=== PATIENT | male | born 1990 | race Caucasian/White ===

== ENCOUNTER 2020-08-13 08:36 | Emergency (ER) | payer SELFPAY ==
[2020-08-13 09:22] LABS: Absolute Lymphocytes (CBC) 1.1 K/uL (0.7-4.9); Basophils % 0.2 % (0-1.3); Hematocrit 51.1 % (39.6-49.0); MPV 9.6 fL (7.6-11.3); RBC Red Blood Cell Count 5.82 M/uL (4.33-5.43)
[2020-08-13] MEDS ORDERED: MAGNES/ALUMIN/SIMET 30ML UCUP ONE (09:25)
[2020-08-13] MEDS ORDERED: ONDANSETRON 4 MG/2 ML VIAL ONE (09:25)
[2020-08-13] MEDS ORDERED: LIDOCAINE VISCOUS 2% SOLN 15 ML UDC ONE (09:26)
[2020-08-13] MEDS ORDERED: PANTOPRAZOLE 40 MG INJ ONE (09:26)
[2020-08-13] MEDS ORDERED: NA CHLORIDE 0.9% 1,000 ML ONE ×2 (09:26→10:26)
[2020-08-13 09:32] LABS: Albumin 4.7 g/dL (3.4-5.0); Bilirubin Direct 0.2 mg/dL (0-0.2); Bilirubin Total 1.4 mg/dL (0.2-1.0); Potassium 3.3 mmol/L (3.5-5.1); Protein, Total 8.2 g/dL (6.4-8.2)
--- NOTE | 2020-08-13 09:52 | RAD REPORT ---
EXAM DESCRIPTION: CT - Abdomen Pelvis W Contrast - 08/13/2020 9:34 am CLINICAL HISTORY: hematemesis COMPARISON: No comparisons TECHNIQUE: Biphasic, helical CT imaging of the abdomen and pelvis was performed following 100 ml non -ionic IV contrast. No oral contrast given. All CT scans are performed using dose optimization technique as appropriate and may include automated exposure control or mA/KV adjustment according to patient size. FINDINGS: No suspicious findings in the lung bases. The liver, spleen, and pancreas show no suspicious findings. Gallbladder and biliary tree are also wi thout suspicious finding. Symmetric renal function is seen with no hydronephrosis or suspicious renal mass. No pyelonephritis o r acute parenchymal process. No bladder abnormalities. No adrenal abnormalities. Stomach is decompressed with very little content within the lumen. This accentuates wall thickness. N o gross or clearly abnormal wall thickening, mass or edema seen. Gastritis or mucosal level abnormali ties can be occult on CT imaging. Duodenum and remainder of the small bowel shows no acute finding. C olon is mostly decompressed with no acute finding. Tubular structure abutting the right psoas muscle is believed to be normal diameter appendix. No direct or indirect findings for acute appendicitis. No free air, free fluid or inflammatory stranding. No hernia, mass or bulky lymphadenopathy. No suspicious bony findings. IMPRESSION: Contrast enhanced CT abdomen and pelvis showing no acute or emergent finding.
[2020-08-13 10:19] LABS: Blood Morphology Comment NOT SEEN (NOT SEEN); Platelet Estimate ADEQ; White Blood Cell Scan OK (OK)
--- NOTE | 2020-08-13 11:21 | ER ---
Nurse's Notes [facility] Name: Armando Wall Age: 30 yrs Sex: Male : 1990 Arrival Date: 08/13/2020 Time: 08:40 Bed 20 Private MD: Diagnosis: Hematemesis;Dehydration Presentation: 08/13 08:41 Chief complaint: Patient states: N/V with blood in it since 6 am Saturday. [place] hot at ll1 home, but no thermometer. Coronavirus screen: Client denies travel out of the [place] in the last 14 days. At this time, the client does not indicate any symptoms associated with coronavirus-19. Ebola Screen: Patient denies travel to an Ebola-affected area in the 21 days before illness onset. Initial Sepsis Screen: Does the patient meet any 2 criteria? No. Patient's initial sepsis screen is negative. Does the patient have a suspected source of infection? Yes: Acute abdominal pain. Risk Assessment: Do you want to hurt yourself or someone else? Patient reports no desire to harm self or others. Onset of symptoms was August 12, 2020. 08:41 Method Of Arrival: EMS: [facility] 08:41 Acuity: HUBER 3 ll1 Triage Assessment: 08:40 Pain: Quality of pain is described as crampy. rb3 Historical: - Allergies: 08:41 PENICILLINS; ll1 - PMHx: 08:41 stomach ulcers; ll1 - PSHx: 08:41 None; ll1 - Immunization history:: Flu vaccine is not up to date. - Social history:: Smoking status: Patient reports the use of cigarette tobacco products, smokes two packs cigarettes per day. - Family history:: not pertinent. - Hospitalizations: : No recent hospitalization is reported. Screenin:40 Abuse screen: Denies threats or abuse. Nutritional screening: No deficits noted. rb3 Tuberculosis screening: No symptoms or risk factors identified. Fall Risk None identified. Assessment: 08:40 General: Appears in no apparent distress. Behavior is calm, cooperative. Neuro: Level rb3 of Consciousness is awake, alert, obeys commands, Oriented to person, place, time, situation. Cardiovascular: Patient's skin is warm and dry. Respiratory: Airway is patent Respiratory effort is even, unlabored, Respiratory pattern is regular, symmetrical. GI: Reports nausea, vomiting, Feeling dehydrated. : No signs and/or symptoms were reported regarding the genitourinary system. 09:40 Reassessment: Patient appears in no apparent distress at this time. No changes from rb3 previously documented assessment. 10:30 Reassessment: Patient appears in no apparent distress at this time. Patient and/or rb3 family updated on plan of care and expected duration. Pain level reassessed. Patient is alert, oriented x 3, equal unlabored respirations, skin warm/dry/pink. Patient states feeling better. 11:30 Reassessment: Patient appears in no apparent distress at this time. No changes from rb3 previously documented assessment. Vital Signs: 08:41 BP 136 / 80; Pulse 73; Resp 18; Temp 98.4; Pulse Ox 100% on R/A; Weight 58.97 kg; ll1 Height 5 ft. 8 in. (172.72 cm); Pain 4/10; 09:15 BP 127 / 84; Pulse 51; Resp 19; Pulse Ox 98% ; rb3 10:15 BP 126 / 78; Pulse 64; Resp 16; Pulse Ox 98% ; rb3 11:15 BP 121 / 76; Pulse 74; Resp 17; Pulse Ox 99% ; rb3 08:41 Body Mass Index 19.77 (58.97 kg, 172.72 cm) ll1 ED Course: 08:40 Patient arrived in ED. rb3 08:[address] MD is Attending Physician. rn 08:40 Patient has correct armband on for positive identification. Bed in low position. Call rb3 light in reach. Side rails up X 1. Pulse ox on. NIBP on. 08:41 Arm band placed on Patient placed in an exam room, on a stretcher. ll1 08:43 Triage completed. ll1 08:50 Pilar Ventura, RN is Primary Nurse. rb3 08:59 Inserted saline lock: 20 gauge in right antecubital area, using aseptic technique. rb3 Blood collected. 09:34 CT Abd/Pelvis - IV Contrast Only In Process Unspecified. EDMS 11:21 Zeus Sauceda MD is Referral Physician. rn 11:58 No provider procedures requiring assistance completed. IV discontinued, intact, rb3 bleeding controlled, No redness/swelling at site. Pressure dressing applied. Administered Medications: 09:10 Drug: GI Cocktail without - (Maalox Suspension 30 ml, Lidocaine Liquid 2 % 15 rb3 ml) Route: PO; 09:30 Follow up: Response: No adverse reaction rb3 09:15 Drug: Zofran (Ondansetron) 4 mg Route: IVP; Site: right antecubital; rb3 09:30 Follow up: Response: No adverse reaction rb3 09:15 Drug: ProTONIX (pantoprazole) 40 mg Route: IVP; Site: right antecubital; rb3 09:30 Follow up: Response: No adverse reaction rb3 09:15 Drug: NS 0.9% 1000 ml Route: IV; Rate: 1000 ml; Site: right antecubital; rb3 10:22 Follow up: IV Status: Completed infusion rb3 10:07 Drug: NS 0.9% 1000 ml Route: IV; Rate: 1000 ml; Site: right antecubital; rb3 11:09 Follow up: IV Status: Completed infusion rb3 Outcome: 11:21 Discharge ordered by . rn 11:58 Discharged to home ambulatory. rb3 11:58 Condition: stable 11:58 Discharge instructions given to patient, Instructed on discharge instructions, follow up and referral plans. medication usage, Demonstrated understanding of instructions, follow-up care, medications, Prescriptions given X 2. 11:58 Patient left the ED. rb3 Signatures: Dispatcher [employer] EDMS Enoc Way MD MD rn Lewis, Lynsay, RN RN ll1 Pilar Ventura RN RN rb3 Corrections: (The following items were deleted from the chart) 12:06 12:04 Patient left the ED. rb3 rb3
--- NOTE | 2020-08-13 11:21 | EDPHYS ---
Physician Documentation [facility] Name: Armando Wall Age: 30 yrs Sex: Male : 1990 Arrival Date: 08/13/2020 Time: 08:40 Bed 20 Private MD: ED Physician Enoc Way HPI: 08/13 09:28 This 30 yrs old Male presents to ER via EMS with complaints of dehydration. rn 09:28 This 30 yrs old Male presents to ER via EMS with complaints of dehydration, rn vomiting blood. 09:28 The patient presents to the emergency department vomiting blood. Onset: The rn symptoms/episode began/occurred last night. Abdominal pain: described as achy, located in the epigastric area, that does not radiate. Modifying factors: The symptoms are alleviated by nothing, the symptoms are aggravated by nothing. Associated signs and symptoms: Pertinent positives: anorexia, Pertinent negatives: dizziness at rest, dizziness when standing, fever, shortness of breath, syncope. Severity of symptoms: At their worst the symptoms were moderate in the emergency department the symptoms are unchanged. The patient has not experienced similar symptoms in the past. The patient has not recently seen a physician. Reports hx of gastric ulcers, began throwing up last night, + coffee ground appearing and small amount of bright res blood, no fever. Reports not able to keep fluids down. Feels generalized weakness. . Historical: - Allergies: 08:41 PENICILLINS; ll1 - PMHx: 08:41 stomach ulcers; ll1 - PSHx: 08:41 None; ll1 - Immunization history:: Flu vaccine is not up to date. - Social history:: Smoking status: Patient reports the use of cigarette tobacco products, smokes two packs cigarettes per day. - Family history:: not pertinent. - Hospitalizations: : No recent hospitalization is reported. ROS: 09:28 Constitutional: Negative for fever, chills, and weight loss, Eyes: Negative for injury, rn pain, redness, and discharge, Neck: Negative for injury, pain, and swelling, Cardiovascular: Negative for chest pain, palpitations, and edema, Respiratory: Negative for shortness of breath, cough, wheezing, and pleuritic chest pain, Abdomen/GI: + epigastric abd pain and nausea/vomiting Back: Negative for injury and pain, : Negative for injury, bleeding, discharge, and swelling, MS/Extremity: Negative for injury and deformity, Skin: Negative for injury, rash, and discoloration, Neuro: Negative for headache, numbness, tingling, and seizure. Exam: 09:28 Constitutional: Thin male, no acute distress, holding empty emesis bag. Head/Face: rn Normocephalic, atraumatic. Eyes: Periorbital areas with no swelling, redness, or edema. ENT: dry MM Cardiovascular: Regular rate and rhythm . No pulse deficits. Respiratory: No increased work of breathing, no retractions or nasal flaring. Abdomen/GI: soft, mild epigastric tenderness, neg ramsay Skin: Warm, dry MS/ Extremity: Pulses equal, no cyanosis. Neuro: Awake and alert, GCS 15 Vital Signs: 08:41 BP 136 / 80; Pulse 73; Resp 18; Temp 98.4; Pulse Ox 100% on R/A; Weight 58.97 kg; ll1 Height 5 ft. 8 in. (172.72 cm); Pain 4/10; 09:15 BP 127 / 84; Pulse 51; Resp 19; Pulse Ox 98% ; rb3 10:15 BP 126 / 78; Pulse 64; Resp 16; Pulse Ox 98% ; rb3 11:15 BP 121 / 76; Pulse 74; Resp 17; Pulse Ox 99% ; rb3 08:41 Body Mass Index 19.77 (58.97 kg, 172.72 cm) ll1 MDM: 08:40 Patient medically screened. rn 11:19 Differential diagnosis: gastric ulcer, upper GI bleed. Data reviewed: vital signs, rn nurses notes, lab test result(s), radiologic studies, CT scan, and as a result, I will discharge patient. Counseling: I had a detailed discussion with the patient and/or guardian regarding: the historical points, exam findings, and any diagnostic results supporting the discharge/admit diagnosis, lab results, radiology results, the need for outpatient follow up, to return to the emergency department if symptoms worsen or persist or if there are any questions or concerns that arise at home. Response to treatment: the patient's symptoms have markedly improved after treatment, and as a result, I will discharge patient. Special discussion: I discussed with the patient/guardian in detail that at this point there is no indication for admission to the hospital. It is understood, however, that if the symptoms persist or worsen the patient needs to return immediately for re-evaluation. Based on the history and exam findings, there is no indication for further emergent testing or inpatient evaluation. I discussed with the patient/guardian the need to see the vehicle insurance agent for further evaluation of the symptoms. ED course: Pt markedly improved, no further vomiting, stable vitals and h/h, states "feels great", will dc home with antacids, prn zofran, and GI f/u.. 08/13 08:48 Order name: Basic Metabolic Panel; Complete Time: 09:55 rn 08/13 08:48 Order name: CBC with Diff; Complete Time: 10:24 rn 08/13 08:48 Order name: Hepatic Function; Complete Time: 09:55 rn 08/13 08:48 Order name: Lipase; Complete Time: 09:55 rn 08/13 08:48 Order name: Type And Screen; Complete Time: 10:24 rn 08/13 09:20 Order name: CREATININE WHOLE BLOOD; Complete Time: 09:24 EDAK 08/13 08:48 Order name: CT Abd/Pelvis - IV Contrast Only; Complete Time: 09:55 rn 08/13 09:31 Order name: CBC Smear Scan; Complete Time: 10:24 EDMS 08/13 10:26 Order name: ABO/RH no charge EDAK 08/13 08:48 Order name: IV Saline Lock; Complete Time: 09:16 rn 08/13 08:48 Order name: Labs collected and sent; Complete Time: 09:16 rn Administered Medications: 09:10 Drug: GI Cocktail without - (Maalox Suspension 30 ml, Lidocaine Liquid 2 % 15 rb3 ml) Route: PO; 09:30 Follow up: Response: No adverse reaction rb3 09:15 Drug: Zofran (Ondansetron) 4 mg Route: IVP; Site: right antecubital; rb3 09:30 Follow up: Response: No adverse reaction rb3 09:15 Drug: ProTONIX (pantoprazole) 40 mg Route: IVP; Site: right antecubital; rb3 09:30 Follow up: Response: No adverse reaction rb3 09:15 Drug: NS 0.9% 1000 ml Route: IV; Rate: 1000 ml; Site: right antecubital; rb3 10:22 Follow up: IV Status: Completed infusion rb3 10:07 Drug: NS 0.9% 1000 ml Route: IV; Rate: 1000 ml; Site: right antecubital; rb3 11:09 Follow up: IV Status: Completed infusion rb3 Disposition: 08/13/20 11:21 Discharged to Home. Impression: Hematemesis, Dehydration. - Condition is Stable. - Discharge Instructions: Dehydration, Adult, Gastroesophageal Reflux Disease, Adult, Hematemesis. - Prescriptions for Zofran ODT 4 mg Oral tablet,disintegrating - place 1 tablet by TRANSLINGUAL route every 8 hours As needed; 20 tablet. Protonix 40 mg Oral Tablet - take 1 tablet by ORAL route once daily; 30 tablet. - Medication Reconciliation Form, Thank You Letter, Antibiotic Education, Prescription Opioid Use form. - Follow up: Zeus Sauceda MD; When: As needed; Reason: Recheck today's complaints, Re-evaluation by your physician. - Problem is new. - Symptoms have improved. Signatures: Dispatcher [employer] EDMS Enoc Way MD MD rn Lewis, Lynsay, RN RN ll1 Pilar Ventura RN RN rb3 Corrections: (The following items were deleted from the chart) 12:04 11:21 08/13/2020 11:21 Discharged to Home. Impression: Hematemesis; Dehydration. rb3 Condition is Stable. Forms are Medication Reconciliation Form, Thank You Letter, Antibiotic Education, Prescription Opioid Use. Follow up: Zeus Sauceda; When: As needed; Reason: Recheck today's complaints, Re-evaluation by your physician. Problem is new. Symptoms have improved. rn
[2020-08-13 12:44] VITALS: TEMP 98.4
[2020-08-13 12:49] VITALS: BP 121/76; O2SAT 99
== END 2020-08-13 12:04 | disposition home or self-care (01) ==
LOC: ER 08:36
DX: E86.0 Dehydration (principal); F17.210 Nicotine dependence, cigarettes, uncomplicated; Z88.0 Allergy status to penicillin
CPT/HCPCS: 36415; 74177; 80048; 80076; 82565; 83690; 85025; 86850; 86900; 86901; 96361; 96374; 96375; 99284; C9113; J2405; J7030; Q9967

== ENCOUNTER 2021-03-11 10:13 | Emergency (ER) | payer SELFPAY ==
[2021-03-11] MEDS ORDERED: CEFTRIAXONE 1000 MG/VIAL ONE (11:21)
[2021-03-11] MEDS ORDERED: AZITHROMYCIN 250 MG TAB ONE (11:21)
[2021-03-11] MEDS ORDERED: LIDOCAINE 1% MPF 2 ML AMPULE ONE (11:21)
--- NOTE | 2021-03-11 11:21 | EDPHYS ---
Physician Documentation [facility] Name: Armando Wall Age: 31 yrs Sex: Male : 1990 Arrival Date: 03/11/2021 Time: 10:15 Bed 16 Private MD: ED Physician Idalia Jauregui HPI: 03/11 10:30 This 31 yrs old Male presents to ER via Ambulatory with complaints of Testicular jmm Swelling, Penile Discharge, Penile Pain. 10:30 The patient presents with scrotal pain, of the right side. Onset: The symptoms/episode jmm began/occurred gradually, 3 week(s) ago. Modifying factors: The symptoms are alleviated by nothing, the symptoms are aggravated by nothing. Associated signs and symptoms: Pertinent positives: discharge, Pertinent negatives: fever. This is a 31 year old male with a history of stomach ulcers that presents to the ED with penile discharge and scrotal pain worsening over the past 3 weeks. Patient states having gonorrhea in the past. . Historical: - Allergies: 10:22 PENICILLINS; jg9 - PMHx: 10:22 Stomach Ulcers; jg9 - Immunization history:: Client reports having NOT received the Covid vaccine. Pneumococcal vaccine is not up to date, Flu vaccine is not up to date. - Social history:: Smoking status: Patient reports the use of cigarette tobacco products, smokes one pack cigarettes per day. ROS: 10:30 Constitutional: Negative for fever, chills, and weight loss, Cardiovascular: Negative jmm for chest pain, palpitations, and edema, Respiratory: Negative for shortness of breath, cough, wheezing, and pleuritic chest pain. 10:30 : Positive for penile pain, testicular pain 10:30 All other systems are negative. Exam: 10:30 Constitutional: This is a well developed, well nourished patient who is awake, alert, jmm and in no acute distress. Head/Face: atraumatic. Eyes: EOMI, no conjunctival erythema appreciated ENT: Moist Mucus Membranes Neck: Trachea midline, Supple Chest/axilla: Normal chest wall appearance and motion. Cardiovascular: Regular rate and rhythm. No edema appreciated Respiratory: Normal respirations, no respiratory distress appreciated Abdomen/GI: Non distended, soft Back: Normal ROM Skin: General appearance color normal 10:30 Neuro: Awake and alert, normal gait Psych: Behavior is normal, Mood is normal, Patient is cooperative and pleasant 10:30 : Male external genitalia: swelling: penile, scrotal, of the epididymis area, that is moderate. Vital Signs: 10:16 BP 110 / 71; Pulse 79; Resp 16 S; Temp 98.8; Weight 56.7 kg (R); Height 5 ft. 8 in. 9 (172.72 cm); 11:08 BP 118 / 70; Pulse 83; Resp 16; Pulse Ox 99% on R/A; Pain 7/10; ab2 11:35 BP 127 / 111; Pulse 89; Resp 16; Pulse Ox 100% on R/A; ab2 10:16 Body Mass Index 19.01 (56.70 kg, 172.72 cm) 9 MDM: 10:32 Patient medically screened. [facility] 11:17 Data reviewed: vital signs, nurses notes. Counseling: I had a detailed discussion with brielle the patient and/or guardian regarding: the historical points, exam findings, and any diagnostic results supporting the discharge/admit diagnosis, lab results, radiology results, the need for outpatient follow up, to return to the emergency department if symptoms worsen or persist or if there are any questions or concerns that arise at home. ED course: Patient will be treated for STI due to symptomatology. Advised to follow up with urology for further evaluation. patient understood and agrees with the plan of care. . 03/11 10:38 Order name: GC (GONORR/CHLAMYDIA) Probe [facility] 03/11 10:38 Order name: Scrotum Testicles; Complete Time: 11:52 [facility] 03/11 11:30 Order name: Urine Dipstick-Ancillary; Complete Time: 11:52 [facility] 03/11 11:36 Order name: GC (Milton/Chl) Probe URINE [facility] 03/11 10:38 Order name: Urine Dipstick-Ancillary (obtain specimen); Complete Time: 11:29 tianna Administered Medications: 11:28 Drug: Zithromax (azithromycin) 1 grams Route: PO; ab2 11:29 Drug: Rocephin (cefTRIAXone) 500 mg Route: IM; Site: right gluteus; ab2 Disposition Summary: 03/11/21 11:20 Discharge Ordered Location: Home [facility] Condition: Stable brielle Diagnosis - Penile Discharge [facility] Followup: brielle - With: Jimbo Leung MD - When: 2 - 3 days - Reason: Recheck today's complaints, Continuance of care, Re-evaluation by your physician Discharge Instructions: - Discharge Summary Sheet tianna - Preventing Sexually Transmitted Infections, Adult tianna Forms: - Medication Reconciliation Form tianna - Thank You Letter brielle - Antibiotic Education brielle - Prescription Opioid Use tianna Prescriptions: - Doxycycline Hyclate 100 mg Oral Tablet - take 1 tablet by ORAL route every 12 hours; 20 tablet; Refills: 0, Product ivan Selection Permitted Signatures: Dispatcher [employer] EDMS Enrique Benedict PA PA jmm Gilmore, Jennifer, RN RN jg9 Lennox Cannon2 Corrections: (The following items were deleted from the chart) 11:36 10:38 GC (Milton/Chl) Probe CX/URE ordered. EDMS EDMS
--- NOTE | 2021-03-11 11:21 | ER ---
Nurse's Notes [facility] Name: Armando Wall Age: 31 yrs Sex: Male : 1990 Arrival Date: 03/11/2021 Time: 10:15 Bed 16 Private MD: Diagnosis: Penile Discharge Presentation: 03/11 10:16 Chief complaint: Patient states: Patient states" for 3 weeks I have had pussy discharge jg9 and it is painful to urinate and this morning I woke up to my r testicle swollen and in a lot of pain". Patient has not been sexually active for 3 weeks to a month since symptoms began. Coronavirus screen: Vaccine status: Patient reports being unvaccinated. Ebola Screen: Patient negative for fever greater than or equal to 101.5 degrees Fahrenheit, and additional compatible Ebola Virus Disease symptoms Patient denies exposure to infectious person. Patient denies travel to an Ebola-affected area in the 21 days before illness onset. Initial Sepsis Screen: Does the patient meet any 2 criteria? No. Patient's initial sepsis screen is negative. Risk Assessment: Do you want to hurt yourself or someone else? Patient reports no desire to harm self or others. Onset of symptoms was February 20, 2021. 10:16 Method Of Arrival: Ambulatory j9 10:16 Acuity: HUBER 3 jg9 11:15 Initial Sepsis Screen: Does the patient have a suspected source of infection? No. ab2 Patient's initial sepsis screen is negative. Triage Assessment: 10:22 General: Appears in no apparent distress. Behavior is calm. Pain: Complains of pain in jg9 pelvis. Historical: - Allergies: 10:22 PENICILLINS; jg9 - PMHx: 10:22 Stomach Ulcers; jg9 - Immunization history:: Client reports having NOT received the Covid vaccine. Pneumococcal vaccine is not up to date, Flu vaccine is not up to date. - Social history:: Smoking status: Patient reports the use of cigarette tobacco products, smokes one pack cigarettes per day. Screenin:14 Abuse screen: Denies threats or abuse. Denies injuries from another. Nutritional ab2 screening: No deficits noted. Tuberculosis screening: No symptoms or risk factors identified. Fall Risk None identified. Assessment: 11:12 General: Appears uncomfortable, Behavior is calm, cooperative, appropriate for age. ab2 Pain: Complains of pain in groin Pain currently is 8 out of 10 on a pain scale. Quality of pain is described as heavy, pressure, Pain began 2-3 days ago. Neuro: No deficits noted. Level of Consciousness is awake, alert, obeys commands, Oriented to person, place, time, situation, Appropriate for age Lap Welder are equal bilaterally Moves all extremities. Gait is steady, Speech is normal, Facial symmetry appears normal. Cardiovascular: No deficits noted. Denies chest pain, shortness of breath, Heart tones S1 S2 present Chest pain is denied. Respiratory: No deficits noted. Airway is patent Breath sounds are clear bilaterally. GI: No deficits noted. No signs and/or symptoms were reported involving the gastrointestinal system. Abdomen is flat, non-distended, Bowel sounds present X 4 quads. Abd is soft and non tender Abd is non tender X 4 quads. : Reports burning with urination, pain testicle, with urination, Scrotal pain: sudden onset. EENT: No deficits noted. No signs and/or symptoms were reported regarding the EENT system. Derm: No deficits noted. No signs and/or symptoms reported regarding the dermatologic system. Musculoskeletal: No deficits noted. No signs and/or symptoms reported regarding the musculoskeletal system. Vital Signs: 10:16 BP 110 / 71; Pulse 79; Resp 16 S; Temp 98.8; Weight 56.7 kg (R); Height 5 ft. 8 in. 9 (172.72 cm); 11:08 BP 118 / 70; Pulse 83; Resp 16; Pulse Ox 99% on R/A; Pain 7/10; ab2 11:35 BP 127 / 111; Pulse 89; Resp 16; Pulse Ox 100% on R/A; ab2 10:16 Body Mass Index 19.01 (56.70 kg, 172.72 cm) 9 ED Course: 10:15 Patient arrived in ED. as 10:22 Triage completed. 9 10:24 Enrique Benedict PA is PHCP. [facility] 10:24 Idalia Jauregui MD is Attending Physician. m 10:25 Lennox Cannon is Primary Nurse. ab2 11:13 US Scrotum Testicles In Process Unspecified. EDMS 11:14 Arm band placed on right wrist. ab2 11:14 No provider procedures requiring assistance completed. ab2 11:15 Patient has correct armband on for positive identification. Bed in low position. Call ab2 light in reach. Side rails up X2. 11:20 Jimbo Leung MD is Referral Physician. [facility] 11:37 Patient did not have IV access during this emergency room visit. ab2 Administered Medications: 11:28 Drug: Zithromax (azithromycin) 1 grams Route: PO; ab2 11:29 Drug: Rocephin (cefTRIAXone) 500 mg Route: IM; Site: right gluteus; ab2 Outcome: 11:20 Discharge ordered by . brielle 11:37 Discharged to home ab2 11:37 Condition: good 11:37 Discharge instructions given to patient, Instructed on discharge instructions, follow up and referral plans. safe sex practices, Demonstrated understanding of instructions, follow-up care, medications, Prescriptions given X 1. 11:38 Patient left the ED. ab2 Signatures: Dispatcher [employer] EDMS Enrique Benedict PA PA jmm Martinez, Amelia as Gilmore, Jennifer, RN RN jg9 Lennox Cannon ab2 Corrections: (The following items were deleted from the chart) 11:36 11:29 GC ([facility]) Probe CX/URE drawn and sent. ab2 EDMS
[2021-03-11 11:30] LABS: Urine Blood 1+ (Negative); Urine Glucose Negative (Negative); Urine Protein 2+ (Negative); Urine Specific Gravity 1.025 (1.005-1.030)
--- NOTE | 2021-03-11 11:39 | RAD REPORT ---
EXAM DESCRIPTION: US - Scrotum Testicles - 03/11/2021 11:13 am CLINICAL HISTORY: scrotal pain Right-sided pain COMPARISON: No comparisons FINDINGS: The right testicle 5.5 x 3.2 x 2.6 cm. No intratesticular masses or evidence of testicular torsion. The left testicle 5.0 x 2.8 x 2.4 cm. No intratesticular masses or evidence of testicular torsion. Both epididymides are normal in size and appearance. Left varicocele noted. No pathologic fluid collections. IMPRESSION: No evidence of testicular torsion or intratesticular mass. Left varicocele.
[2021-03-11 11:48] VITALS: TEMP 98.8
[2021-03-11 11:51] VITALS: BP 127/111; O2SAT 100
[2021-03-14 20:00] LABS: C.trachomatis RNA,TMA Not Detected (Not Detected)
== END 2021-03-11 11:38 | disposition home or self-care (01) ==
LOC: ER 10:13
DX: R36.9 Urethral discharge, unspecified (principal); F17.210 Nicotine dependence, cigarettes, uncomplicated
CPT/HCPCS: 76870; 81003; 87490; 87590; 96372; 99283